=== PATIENT | female | born 1950 | race Caucasian/White ===

== ENCOUNTER → 2017-07-16 | Day surgery (SDC) | payer MEDICARE ==
[~2017-07-16] MED LIST: ACETAMINOPHEN 1000 MG/100 ML 100 ML IV ONE; BUPIVACAINE/EPINEPHRINE 0.25% 50 ML VIAL ONE; HYDROCORTISONE SOD SUCCINATE 100 MG VIAL ONE; KETOROLAC TROMETHAMINE 30 MG/ML (IVP) VIAL IV PUSH ONE; LACTATED RINGER'S 1000 ML INJ 1,000 ML ONE; LEVA500T20 PO; MIDAZOLAM HCL 2 MG/2 ML VIAL ONE; MORPHINE SULFATE 4 MG/ML INJ ONE; ONDANSETRON HCL 4 MG/2 ML VIAL IV PUSH ONE; PERC5TAB12 PO; PRED5TAB PO; PROPOFOL 200 MG/20 ML AMP IV ONE; SODIUM CHLORIDE 0.9% INJ 100 ML IV ONE; VANCOMYCIN HCL 1000 MG VIAL ONE
--- NOTE | 2017-07-16 10:00 | MP ---
cc: KIMBERLY MCGINNIS M.D., YONG-HSIUNG MD DATE OF SURGERY 07/16/2017 PROCEDURE Laparoscopic cholecystectomy. PREOPERATIVE DIAGNOSIS Symptomatic cholelithiasis with biliary colic. POSTOPERATIVE DIAGNOSIS Symptomatic cholelithiasis with biliary colic. ANESTHESIA General endotracheal. SURGEON MD Juan CONSTRUCTION EQUIPMENT MECHANIC HELPER AISSATOU Hamilton ESTIMATED BLOOD LOSS Less than 30 mL. FLUIDS 900 mL crystalloid. COMPLICATIONS None. DRAINS None. SPECIMEN Gallbladder and stones to pathology. PROCEDURE IN DETAIL The CASTING OPERATOR HELPER was present for the entirety of the procedure. Her presence was required for retraction, visualization and resection of important structures. The patient was taken to the operating room and placed on the operating table in the supine position. The abdomen was prepped and draped in the usual fashion. Time-out was taken confirming the correct patient, site and procedure to be performed. The skin and subcutaneous tissue was infiltrated with local anesthetic and an incision made in the umbilicus and carried through the fascia sharply. The peritoneal cavity was directly visualized. Three 5-mm trocars were placed with the first to the right of the falciform ligament and second and third in the right subcostal region. All entered the abdominal cavity under direct vision uneventfully. The fundus of the gallbladder was grasped and retracted up and over the dome of liver. The cystic duct-infundibular junction and cystic artery were both circumferentially dissected. The cystic artery was doubly clipped proximally, singly clipped on the gallbladder side and divided. The cystic duct was doubly clipped distally, singly clipped on the gallbladder side and divided. Cholangiogram was not obtained, as the anatomy was very clearly identified with the common duct visualized as well. Liver function tests had normalized and the common bile duct was not dilated. The gallbladder was then dissected off the liver bed with electrodissection. The gallbladder was entered at one point and all bile was aspirated and rinsed. The gallbladder was then placed into an EndoCatch device and removed via the umbilicus. The specimen was passed off the table. The camera was once again placed into the umbilical port and the upper abdomen visualized. The liver bed, cystic artery stump and cystic duct stump were all seen to be clean and dry. All irrigation was aspirated from the abdominal cavity. Insufflation was discontinued and the upper abdominal ports removed. During desufflation all three upper abdominal trocar sites were observed and seen to be clean and dry. The laparoscope and umbilical port were removed. The fascia was closed in the umbilicus with 0 Vicryl suture in both a simple interrupted and [id number] fashion. The remaining local anesthetic was injected into each of the trocar sites. The skin was closed at each of the trocar sites with 4-0 Vicryl in an interrupted buried fashion. All trocar sites were dressed with Steri-Strips. The patient was extubated and taken back to the recovery room in stable condition. Sponge and needle counts were reported to be correct. The patient tolerated the procedure well. MD ZELDA Hickman/SSB /9:21 AM /9:48 AM
== END | disposition home or self-care (01) ==
LOC: ESDC 06:56
PROVIDERS: ATTEND Surgery Trauma Surgery
DX: K80.12 Calculus of gallbladder with acute and chronic cholecystitis without obstruction (principal)
CPT/HCPCS: 00790; 47562; 88304; J0131; J1720; J1885; J2250; J2270; J2405; J3010; J3370; J7120

== ENCOUNTER 2017-07-19 11:28 | Observation (INO) | payer MEDICARE ==
[~2017-07-19] VITALS: Ht 154.9 cm; Wt 87.0 kg
[2017-07-19 11:30] VITALS: BP 157/90; PULSE 108; RESP 24; TEMP 98.5; O2SAT 96
[2017-07-19] MEDS ORDERED: LACTATED RINGER'S 1000 ML INJ 1,000 ML IV ONE (12:00)
[2017-07-19] MEDS ORDERED: ePHEDrine/NS 25 MG/5 ML SYR IV ONE (12:00)
[2017-07-19] MEDS ORDERED: KETOROLAC TROMETHAMINE 30 MG/ML (IVP) VIAL IV PUSH ONE (12:00)
[2017-07-19] MEDS ORDERED: PROPOFOL 200 MG/20 ML AMP IV ONE (12:00)
[2017-07-19] MEDS ORDERED: PRED5TAB PO (12:40)
[2017-07-19] MEDS ORDERED: PERC5TAB12 PO (12:40)
[2017-07-19 12:41] VITALS: BP 148/98; PULSE 94; RESP 17; O2SAT 97
[2017-07-19] MEDS ORDERED: SODIUM CHLOR 0.9% 1000 ML INJ 1,000 ML IV ONE (13:00)
[2017-07-19] MEDS ORDERED: ONDANSETRON HCL 4 MG/2 ML VIAL IV ONE (13:00)
[2017-07-19 13:34] LABS: BASOPHIL # 0.1 TH/MM3 (0-0.2); BASOPHIL % 0.7 % (0.0-2.0); EOSINOPHIL # 0.2 TH/MM3 (0-0.4); EOSINOPHIL % 1.5 % (0.0-4.0); HEMATOCRIT 42.7 % (35.0-46.0); HEMO FLAGS DIFF FINAL; LYMPH % 17.4 % (9.0-44.0); LYMPHOCYTE # 1.7 TH/MM3 (1.0-4.8); MEAN CELL VOLUME 87.3 FL (80.0-100.0); MEAN CORPUSCULAR HEMOGLOBIN 28.3 PG (27.0-34.0); MEAN CORPUSCULAR HGB CONC 32.4 % (32.0-36.0); MONO % 9.9 % (0.0-8.0); NEUT % 70.5 % (16.0-70.0); PLATELET COUNT 234 TH/MM3 (150-450); RED BLOOD COUNT 4.89 MIL/MM3 (4.00-5.30); RED CELL DISTRIBUTION WIDTH 14.7 % (11.6-17.2); WHITE BLOOD COUNT 9.9 TH/MM3 (4.0-11.0)
[2017-07-19 13:53] LABS: ANION GAP 11 MEQ/L (5-15); AST (GOT) 35 U/L (15-37); BICARBONATE 22.9 MEQ/L (21.0-32.0); BLOOD UREA NITROGEN 20 MG/DL (7-18); CHLORIDE 103 MEQ/L (98-107); GLOMERULAR FILTRATION RATE 74 ML/MIN (>89); POTASSIUM 3.6 MEQ/L (3.5-5.1); SODIUM (NA) 137 MEQ/L (136-145)
[2017-07-19 13:54] LABS: ALT (GPT) 164 U/L (10-53)
[2017-07-19 13:56] LABS: ALKALINE PHOSPHATASE 131 U/L (45-117); TOTAL BILIRUBIN ADULT 1.8 MG/DL (0.2-1.0)
--- NOTE | 2017-07-19 13:56 | PD ---
HPI Chief Complaint: Abdominal Pain Time Seen by Provider: 12:34 Travel History International Travel<30 days: No Contact w/Intl Traveler<30days: No Traveled to known affect area: No History of Present Illness HPI 67-year-old woman who presents to the emergency department complaining of abdominal pain. She had a laparoscopic cholecystectomy on July [address] Camarillo in for symptomatic cholelithiasis and biliary colic. Surgically what well according to the notes. She was doing fine for the next day or so, that night she started getting nausea and vomiting. She with the [facility]. The ears and nausea medicine and check some labs. She currently felt better when home. Yesterday she slept all day had one episode of vomiting. Today she started having abdominal pain and vomiting. She is a bowel movement today after surgery which is normal, several of them, no recent bowel movements. No urinary symptoms. She had some chills. She otherwise has been feeling generally well and healthy. History Past Medical History Narrative Medical Recent cholecystectomy, no other abdominal surgeries Influenza Vaccination: No Social History Alcohol Use: No Tobacco Use: No Allergies-Medications (Allergen,Severity, Reaction): Coded Allergies: amoxicillin (Verified Allergy, Unknown, 07/19/17) Reported Meds & Prescriptions Reported Meds & Active Scripts Active Reported Percocet (Oxycodone-Acetaminophen) 5-325 mg Tab 1 Tab PO BID PRN Prednisone 5 Mg Tab 7.5 Mg PO DAILY Review of Systems Except as stated in HPI: all other systems reviewed are Neg Physical Exam Narrative GENERAL: Well-appearing 67-year-old woman, no acute distress. SKIN: Focused skin assessment warm/dry. HEAD: Atraumatic. Normocephalic. EYES: Pupils equal and round. No scleral icterus. No injection or drainage. ENT: No nasal bleeding or discharge. Mucous membranes pink and moist. NECK: Trachea midline. No JVD. CARDIOVASCULAR: Regular rate and rhythm. No murmur appreciated. RESPIRATORY: No accessory muscle use. Clear to auscultation. Breath sounds equal bilaterally. GASTROINTESTINAL: Abdomen soft. Well-healing laparoscopic cholecystectomy incisions. Minimal right upper quadrant tenderness. No rebound or guarding. MUSCULOSKELETAL: No obvious deformities. No clubbing. No cyanosis. No edema. NEUROLOGICAL: Awake and alert. No obvious cranial nerve deficits. Motor grossly within normal limits. Normal speech. PSYCHIATRIC: Appropriate mood and affect; insight and judgment normal. Data Data Last Documented VS Vital Signs Date Time Temp Pulse Resp B/P (MAP) Pulse Ox O2 Delivery O2 Flow Rate FiO2 07/19/17 12:41 94 17 148/98 (115) 97 Room Air 07/19/17 11:30 98.5 Orders Orders Complete Blood Count With Diff (07/19/17 12:54) Comprehensive Metabolic Panel (07/19/17 12:54) Iv Access Insert/Monitor (07/19/17 12:54) Us Abdomen Gallbladder (07/19/17 ) Sodium Chlor 0.9% 1000 Ml Inj (Ns 1000 M (07/19/17 13:00) Ondansetron Inj (Zofran Inj) (07/19/17 13:00) Admit Order (Ed Use Only) (07/19/17 ) Code Status (07/19/17 14:37) Vital Signs (Adult) KARELY.Q4H (07/19/17 14:37) Activity Oob Ad Lucila (07/19/17 14:37) Discontinue Iv (07/19/17 14:37) Diet Regular Basic (07/19/17 Dinner) Lactated Ringer's 1000 Ml Inj (Lr 1000 M (07/19/17 15:00) Sodium Chloride 0.9% Flush (Ns Flush) (07/19/17 14:45) Sodium Chloride 0.9% Flush (Ns Flush) (07/19/17 21:00) Acetamin-Hydrocod 325-5 Mg (Ollie 5-325 (07/19/17 14:45) Morphine Inj (Morphine Inj) (07/19/17 14:45) Complete Blood Count With Diff (07/20/17 06:00) Acetamin-Hydrocod 325-5 Mg (Ollie 5-325 (07/19/17 14:45) Ondansetron Inj (Zofran Inj) (07/19/17 14:45) Post-Op Orders (For Pharmacy) (Post-Op O (07/19/17 14:45) Do Not Adm Any Anticoagulants (07/19/17 14:45) Naloxone Inj (Narcan Inj) (07/19/17 14:45) Hepatic Functional Panel (07/20/17 06:00) Levofloxacin (Levaquin) (07/20/17 09:00) Place In Observation (07/19/17 14:37) Mri Mrcp W/O Contrast (07/19/17 ) Labs Laboratory Tests Test 07/19/17 13:00 White Blood Count 9.9 TH/MM3 Red Blood Count 4.89 MIL/MM3 Hemoglobin 13.8 GM/DL Hematocrit 42.7 % Mean Corpuscular Volume 87.3 FL Mean Corpuscular Hemoglobin 28.3 PG Mean Corpuscular Hemoglobin Concent 32.4 % Red Cell Distribution Width 14.7 % Platelet Count 234 TH/MM3 Mean Platelet Volume 7.5 FL Neutrophils (%) (Auto) 70.5 % Lymphocytes (%) (Auto) 17.4 % Monocytes (%) (Auto) 9.9 % Eosinophils (%) (Auto) 1.5 % Basophils (%) (Auto) 0.7 % Neutrophils # (Auto) 7.0 TH/MM3 Lymphocytes # (Auto) 1.7 TH/MM3 Monocytes # (Auto) 1.0 TH/MM3 Eosinophils # (Auto) 0.2 TH/MM3 Basophils # (Auto) 0.1 TH/MM3 CBC Comment DIFF FINAL Differential Comment Blood Urea Nitrogen 20 MG/DL Creatinine 0.78 MG/DL Random Glucose 88 MG/DL Total Protein 6.6 GM/DL Albumin 2.9 GM/DL Calcium Level 8.2 MG/DL Alkaline Phosphatase 131 U/L Aspartate Amino Transf (AST/SGOT) 35 U/L Alanine Aminotransferase (ALT/SGPT) 164 U/L Total Bilirubin 1.8 MG/DL Sodium Level 137 MEQ/L Potassium Level 3.6 MEQ/L Chloride Level 103 MEQ/L Carbon Dioxide Level 22.9 MEQ/L Anion Gap 11 MEQ/L Estimat Glomerular Filtration Rate 74 ML/MIN [facility] Medical Decision Making Medical Screen Exam Complete: Yes Emergency Medical Condition: Yes Interpretation(s) LABS: CBC unremarkable. CMP remarkable for mildly elevated ALT, total bili 1.8 Gallbladder ultrasound: Differential Diagnosis Biloma, ileus, infection, other Narrative Course Generally well-appearing 67-year-old woman, postop day 3 following cholecystectomy. Overall looks pretty well. Saw some vomiting and pain. Spoke with Dr. morgan, baton teacher for Dr. Martinez. He evaluated the patient in the ED as well. We'll check ultrasound to rule out biloma. We'll check labs. Otherwise supportive treatment and outpatient follow-up. FINAL: Show increased bilirubin. I spoke with Dr. morgan, we'll get MRCP and admission for further evaluation for possible choledocholithiasis. Alonzo Sawyer MD Jul 19, 2017 13:56
--- NOTE | 2017-07-19 13:57 | RADRPT ---
EXAM DATE/TIME: 07/19/2017 13:19 [facility] COMPARISON: No previous studies available for comparison. INDICATIONS : Right upper quadrant pain. MEDICAL HISTORY : Arthritis. Vomiting. Right upper quadrant pain. SURGICAL HISTORY : Cholecystectomy. ENCOUNTER: Initial ACUITY: 3 days PAIN SCORE: 8/10 LOCATION: Right upper quadrant MEASUREMENTS: LIVER: 13.7 cm length COMMON DUCT: 5 mm RIGHT KIDNEY: 9.0 x 4.8 x 4.4 cm FINDINGS: LIVER: Normal echotexture without focal lesion or ductal dilatation. COMMON DUCT: No intraluminal mass or stone visualized. GALLBLADDER: Previous cholecystectomy. Mild scarring noted in the gallbladder fossa. No fluid collections. PANCREAS: The visualized portions are within normal limits. RIGHT KIDNEY: No evidence of hydronephrosis, stone, or mass. CONCLUSION: No acute abnormality demonstrated. Previous cholecystectomy. Charles Piña MD on July 19, 2017 at 13:54 Board Certified Radiologist. This report was verified electronically.
[2017-07-19] MEDS ORDERED: ACETAMINOPHEN/HYDROcodone 325 MG/5 MG TAB PO PRN ×2 (14:45)
[2017-07-19] MEDS ORDERED: Post-op Orders (for Pharmacy) MISC XX ONE (14:45)
[2017-07-19] MEDS ORDERED: SODIUM CHLORIDE 0.9% FLUSH 5 ML FLUSH IVF PRN (14:45)
[2017-07-19] MEDS ORDERED: NALOXONE HCL 0.4 MG/ML AMP IV PRN (14:45)
[2017-07-19] MEDS ORDERED: ONDANSETRON HCL 4 MG/2 ML VIAL IV PRN (14:45)
[2017-07-19] MEDS ORDERED: LACTATED RINGER'S 1000 ML INJ 1,000 ML IV SCH (15:00)
--- NOTE | 2017-07-19 15:05 | MH ---
cc: AJ MCKINNEY M.D. DATE OF ADMISSION: 07/19/2017 CHIEF COMPLAINT: Nausea, vomiting, status post laparoscopic cholecystectomy HISTORY OF PRESENT ILLNESS: Ms. Kohler is a pleasant 67-year-old female patient of Dr. Dmitriy Martinez'charis who underwent a laparoscopic cholecystectomy on Friday. She reports that on she developed nausea and vomiting. She went to the emergency room at [facility] and where she was seen and evaluated and discharged home with some antiemetics. The patient states that she continued to have intermittent nausea and vomiting and last night became concerned. She called this morning and I spoke to her by phone and I encouraged her to come to the emergency department for evaluation. The patient reported to the emergency department at [facility] where she was seen by myself as well as by Dr. Yang Sawyer. She was worked up and found to have a slight elevation of her liver function tests. I notified Dr. Martinez and he requested that she be admitted for observation and further workup. The patient reports no fever or chills. She reports some mild right upper quadrant pain but no significant pain. She has had no other symptoms other than nausea and vomiting. PAST MEDICAL HISTORY: None PAST SURGICAL HISTORY: Laparoscopic cholecystectomy three days ago. MEDICATIONS: She is currently on: 1. Percocet. 2. Prednisone. ALLERGIES: AMOXICILLIN. SOCIAL HISTORY: She denies cigarette or alcohol use. She lives up in [place]. REVIEW OF SYSTEMS: Her review of systems is unremarkable. FAMILY HISTORY: Her family history is unremarkable. PHYSICAL EXAMINATION: VITAL SIGNS: Temperature 98, pulse is 100, blood pressure is 150/90, respiratory rate 20. GENERAL: In general, this is a pleasant middle-aged female accompanied by her son sitting in the emergency department in no significant distress. HEAD, EYES, EARS, NOSE, THROAT: The sclerae are white. The oropharynx is clear and moist. NECK: The neck is supple. No masses. LUNGS: Clear to auscultation bilaterally. HEART: S1 and S2 and no murmurs. ABDOMEN: Soft. Minimally tender in the right upper quadrant. No rebound or guarding. The surgical wound is all healing well. No evidence of hematoma or infection. EXTREMITIES: Free range of motion x4. NEUROLOGIC: Alert and oriented times three. LABS: White blood cell count 9.9 with 70% neutrophils, hemoglobin 13, platelet count is 234,000. Electrolytes within normal limits. Bilirubin 1.8, ALT is 164, alkaline phosphatase is 131, AST is 35. IMAGING STUDIES: Ultrasound the abdomen: Right upper quadrant unremarkable. Normal sized common bile duct. No free fluid. No ductal dilatation or obvious stones. IMPRESSION: Nausea and vomiting with elevated LFTs status post laparoscopic cholecystectomy. 1. The patient will be admitted for observation. 2. She will undergo an MRCP to further evaluate the common bile duct for possible retained stone. 3. Will check an amylase and lipase to make sure she has not had pancreatitis. 4. Will put her on some prophylactic antibiotics pending her further workup. This was all discussed with the patient and her son at the bedside and they are agreeable. Dr. Martinez was notified and is aware. MD EMI Dixon/CHAR /2:43 PM /2:51 PM
--- NOTE | 2017-07-19 15:58 | RADRPT ---
EXAM DATE/TIME: 07/19/2017 15:06 [facility] COMPARISON: US ABDOMEN - GALLBLADDER, July 19, 2017, 13:19. INDICATIONS : Abdominal pain. Cholecystectomy 07/16/17. MEDICAL HISTORY : Arthritis. SURGICAL HISTORY : Cholecystectomy. ENCOUNTER: Initial ACUITY: 1 day PAIN SCORE: 4/10 LOCATION: Right lower quadrant TECHNIQUE: Multiplanar, multisequence magnetic resonance imaging of the abdomen was performed. High-resolution 3D dataset was utilized to reconstruct maximum-intensity projection (MIP) images. FINDINGS: The patient is status post recent cholecystectomy with a small amount of free fluid identified within the right lateral tissues and within the imaged abdomen is likely postsurgical. There is mild dilati on of the small bowel with herniation of small bowel through an anterior midline defect. The imaged l arge bowel is normal in caliber. INTRAHEPATIC BILE DUCTS: Within normal limits. No significant anatomical variant is present. EXTRAHEPATIC BILE DUCTS: The common bile duct measures 3 mm. No stone or filling defect is identified. GALLBLADDER: Surgically absent. LIVER: Normal size and signal intensity. No concerning liver lesion is identified on this non-contrast exam. PANCREAS: The main pancreatic duct is normal in size. There is no significant anatomical variant. Signal inte nsity is within normal limits. No mass is visualized on this non-contrast exam. OTHER: The remaining visualized structures demonstrate no acute abnormality on this non-contrast exam. CONCLUSION: The patient is status post recent cholecystectomy with herniation of small bowel loops through a ante rior midline defect. The prominence of the small bowel loops may be secondary to ileus versus early s mall bowel obstruction, favor ileus. The free fluid identified within the right lateral soft tissues and within the mesentery is likely postsurgical.. Lidia Conte MD on July 19, 2017 at 15:50 Board Certified Radiologist. This report was verified electronically.
[2017-07-19 15:59] LABS: AMYLASE 33 U/L (25-115)
[2017-07-19] MEDS: MORPHINE SULFATE 4 MG/ML INJ IV PUSH PRN ×2 (17:05→20:47)
--- NOTE | 2017-07-19 19:51 | HHI.PR ---
Subjective Subjective Notes I reviewed MRCP, patient has incarcerated incisional umbilical hernia causing PSBO Objective Vitals/I&O Vital Signs Date Time Temp Pulse Resp B/P (MAP) Pulse Ox O2 Delivery O2 Flow Rate FiO2 07/19/17 17:09 07/19/17 12:41 94 17 97 Room Air 07/19/17 11:30 98.5 Labs Laboratory Tests Test 07/19/17 13:00 White Blood Count 9.9 Red Blood Count 4.89 Hemoglobin 13.8 Hematocrit 42.7 Mean Corpuscular Volume 87.3 Mean Corpuscular Hemoglobin 28.3 Mean Corpuscular Hemoglobin Concent 32.4 Red Cell Distribution Width 14.7 Platelet Count 234 Mean Platelet Volume 7.5 Neutrophils (%) (Auto) 70.5 Lymphocytes (%) (Auto) 17.4 Monocytes (%) (Auto) 9.9 Eosinophils (%) (Auto) 1.5 Basophils (%) (Auto) 0.7 Neutrophils # (Auto) 7.0 Lymphocytes # (Auto) 1.7 Monocytes # (Auto) 1.0 Eosinophils # (Auto) 0.2 Basophils # (Auto) 0.1 CBC Comment DIFF FINAL Differential Comment Blood Urea Nitrogen 20 Creatinine 0.78 Random Glucose 88 Total Protein 6.6 Albumin 2.9 Calcium Level 8.2 Alkaline Phosphatase 131 Aspartate Amino Transf (AST/SGOT) 35 Alanine Aminotransferase (ALT/SGPT) 164 Total Bilirubin 1.8 Sodium Level 137 Potassium Level 3.6 Chloride Level 103 Carbon Dioxide Level 22.9 Anion Gap 11 Estimat Glomerular Filtration Rate 74 Amylase Level 33 Lipase 85 Narrative Exam abdomen is soft, umbilical area has some fullness but I do not feel obvious bowel or defect secondary to her obesity. A/P Assessment and Plan incacerated umbilical incisional hernia s/p lap jerald with psbo dr bang aware, will come in to reduce and repair, OR notified and will add on anil i called son Omi and he is aware and agrees with plan pt aware and agrees also, will sign consents.. Ivan Figueroa MD Jul 19, 2017 19:51
[2017-07-19 20:00] VITALS: BP 158/82; PULSE 84; RESP 20; TEMP 97.6; O2SAT 97
[2017-07-19] MEDS: SODIUM CHLORIDE 0.9% FLUSH 5 ML FLUSH IVF SCH (20:49)
[2017-07-19] MEDS ORDERED: SUGAMMADEX SODIUM 200 MG/2 ML VIAL IV PUSH ONE ×2 (22:21)
[2017-07-19] MEDS ORDERED: CIPROFLOXACIN 400 MG PREMIX 200 ML ONE (22:56)
[2017-07-19] MEDS ORDERED: metroNIDAZOLE 500 MG INJ 100 ML IV ONE (22:57)
[2017-07-19] MEDS ORDERED: ONDANSETRON HCL 4 MG/2 ML VIAL ONE (23:05)
[2017-07-19] MEDS ORDERED: DICLOFENAC SODIUM 37.5 MG/ML VIAL IV PUSH ONE (23:05)
[2017-07-19] MEDS ORDERED: ACETAMINOPHEN 1000 MG/100 ML 100 ML IV ONE (23:05)
--- NOTE | 2017-07-19 23:36 | HHI.PR ---
cc: Dmitriy Martinez MD Immediate Post Op Note Procedure Date: Jul 19, 2017 Pre Op Diagnosis: Incarcerated umbilical hernia with small bowel obstruction Post Op Diagnosis: Same Surgeon: Dmitriy Martinez Electro Optics Engineer(s): Cathy Piedra CFA Procedure: Reduction and primary repair of umbilical hernia Findings: Incarcerated loop of viable small intestine in umbilical hernia Complications: None Specimen(s) removed: None Estimated blood loss: <30 ml Anesthesia: General Drains: None IVF (1100 ml) Patient to: PACU Patient Condition: Good Date/Time of Procedure: SEE SURGICAL CARE RECORD Dmitriy Martinez MD Jul 19, 2017 23:36
[2017-07-19] MEDS ORDERED: DO NOT ADM ANY ANTICOAGULANT DRUGS PRN (23:38)
[2017-07-20] VITALS: BP 159/89; PULSE 91; RESP 20; TEMP 95.7; O2SAT 93
[2017-07-20] MEDS ORDERED: MIDAZOLAM HCL 2 MG/2 ML VIAL ONE (00:07)
[2017-07-20] MEDS ORDERED: fentaNYL CITRATE 250 MCG/5 ML AMP ONE (00:08)
[2017-07-20] MEDS ORDERED: BUPIVACAINE HCL PF 0.5% 30 ML VIAL INFIL ONE (00:25)
[2017-07-20] MEDS: DEXTROSE 5%-LACTATED RING INJ 1,000 ML IV SCH ×5 (01:47→23:45)
[2017-07-20 04:00] VITALS: BP 168/95; PULSE 88; RESP 20; TEMP 97.2; O2SAT 98
[2017-07-20 06:09] LABS: AUTOMATED NEUTROPHIL # 8.4 TH/MM3 (1.8-7.7); BASOPHIL % 0.1 % (0.0-2.0); HEMATOCRIT 38.2 % (35.0-46.0); HEMO FLAGS DIFF FINAL; LYMPH % 6.9 % (9.0-44.0); LYMPHOCYTE # 0.7 TH/MM3 (1.0-4.8); MEAN CORPUSCULAR HGB CONC 33.3 % (32.0-36.0); MONO % 5.4 % (0.0-8.0); NEUT % 87.6 % (16.0-70.0); PLATELET COUNT 193 TH/MM3 (150-450); RED BLOOD COUNT 4.38 MIL/MM3 (4.00-5.30); RED CELL DISTRIBUTION WIDTH 14.4 % (11.6-17.2); WHITE BLOOD COUNT 9.6 TH/MM3 (4.0-11.0)
[2017-07-20 07:20] LABS: INDIRECT BILIRUBIN 0.8 MG/DL (0.0-0.8); TOTAL BILIRUBIN ADULT 1.2 MG/DL (0.2-1.0)
[2017-07-20 08:00] VITALS: BP 139/76; PULSE 84; RESP 18; TEMP 96.2; O2SAT 97
[2017-07-20] MEDS: LEVOFLOXACIN 500 MG TAB PO SCH (08:27)
[2017-07-20] MEDS: SODIUM CHLORIDE 0.9% FLUSH 5 ML FLUSH IVF SCH ×2 (08:28→21:00)
[2017-07-20 12:00] VITALS: BP 147/81; PULSE 77; RESP 16; TEMP 97.1; O2SAT 99
[2017-07-20 16:00] VITALS: BP 144/80; PULSE 80; RESP 16; TEMP 98.2; O2SAT 95
--- NOTE | 2017-07-20 17:56 | HHI.PR ---
Subjective Subjective Notes feels much better Objective Vitals/I&O Vital Signs Date Time Temp Pulse Resp B/P (MAP) Pulse Ox O2 Delivery O2 Flow Rate FiO2 07/20/17 16:00 98.2 80 16 144/80 (101) 95 07/20/17 00:31 Nasal Cannula 3 Labs Laboratory Tests Test 07/20/17 05:15 White Blood Count 9.6 Red Blood Count 4.38 Hemoglobin 12.7 Hematocrit 38.2 Mean Corpuscular Volume 87.0 Mean Corpuscular Hemoglobin 29.0 Mean Corpuscular Hemoglobin Concent 33.3 Red Cell Distribution Width 14.4 Platelet Count 193 Mean Platelet Volume 7.7 Neutrophils (%) (Auto) 87.6 Lymphocytes (%) (Auto) 6.9 Monocytes (%) (Auto) 5.4 Eosinophils (%) (Auto) 0.0 Basophils (%) (Auto) 0.1 Neutrophils # (Auto) 8.4 Lymphocytes # (Auto) 0.7 Monocytes # (Auto) 0.5 Eosinophils # (Auto) 0.0 Basophils # (Auto) 0.0 CBC Comment DIFF FINAL Differential Comment Total Bilirubin 1.2 Direct Bilirubin 0.4 Indirect Bilirubin 0.8 Aspartate Amino Transf (AST/SGOT) 23 Alanine Aminotransferase (ALT/SGPT) 122 Alkaline Phosphatase 112 Total Protein 6.1 Albumin 2.5 Abdomen: Non-distended, Post-op tenderness A/P Assessment and Plan 67yo female with post-site hernia, s/p repair, doing well. FRANCESCO NG clears pain ok Thomas Natarajan MD Jul 20, 2017 17:56
[2017-07-20 20:00] VITALS: BP 144/89; PULSE 96; RESP 20; TEMP 98.1; O2SAT 96
[2017-07-21] VITALS: BP 146/67; PULSE 83; RESP 18; TEMP 97; O2SAT 94
[2017-07-21] MEDS: DEXTROSE 5%-LACTATED RING INJ 1,000 ML IV SCH (07:45)
[2017-07-21 08:00] VITALS: BP 159/81; PULSE 80; RESP 18; TEMP 98.3; O2SAT 95
[2017-07-21] MEDS: LEVOFLOXACIN 500 MG TAB PO SCH (10:48)
[2017-07-21 12:00] VITALS: BP 159/81; PULSE 82; RESP 18; TEMP 97.8; O2SAT 95
[2017-07-21 16:00] VITALS: BP 162/85; PULSE 78; RESP 18; TEMP 98.7; O2SAT 97
[2017-07-21] MEDS ORDERED: LEVA500T20 PO (18:52)
--- NOTE | 2017-07-21 18:55 | HHI.PR ---
Subjective Subjective Notes Feeling well, no pain Had a bowel movement Objective Vitals/I&O Vital Signs Date Time Temp Pulse Resp B/P (MAP) Pulse Ox O2 Delivery O2 Flow Rate FiO2 07/21/17 16:00 98.7 78 18 162/85 (110) 97 07/20/17 00:31 Nasal Cannula 3 Lungs: Clear Abdomen: Non-distended Narrative Exam Steristrips intact; no erythema at umbilicus A/P Assessment and Plan POD #2/5 Repair umbilical hernia/Lap cholecystectomy Doing extremely well Advance diet Heplock IVF Home tomorrow Dmitriy Martinez MD Jul 21, 2017 18:55
[2017-07-21 20:00] VITALS: BP 143/69; PULSE 81; RESP 22; TEMP 98.6; O2SAT 97
[2017-07-21] MEDS: SODIUM CHLORIDE 0.9% FLUSH 5 ML FLUSH IVF SCH (20:46)
[2017-07-22] VITALS: BP 152/75; PULSE 91; RESP 20; TEMP 97.9; O2SAT 95
[2017-07-22 08:00] VITALS: BP 140/82; PULSE 85; RESP 18; TEMP 98.8; O2SAT 96
[2017-07-22] MEDS: LEVOFLOXACIN 500 MG TAB PO SCH (08:58)
[2017-07-22] MEDS: SODIUM CHLORIDE 0.9% FLUSH 5 ML FLUSH IVF SCH (08:59)
--- NOTE | 2017-07-22 09:15 | MP ---
cc: KIMBERLY MARTINEZ M.D. DATE OF SURGERY 07/19/2017 PROCEDURE Reduction and repair of incarcerated umbilical hernia with primary repair. PREOPERATIVE DIAGNOSIS Incarcerated umbilical hernia with bowel obstruction. POSTOPERATIVE DIAGNOSIS Incarcerated umbilical hernia with bowel obstruction. ANESTHESIA General endotracheal SURGEON Kimberly Martinez MD ESTIMATED BLOOD LOSS Less than 30 mL FLUIDS 1100 mL crystalloid COMPLICATIONS None DRAINS None SPECIMEN None PROCEDURE IN DETAIL The patient was taken to the operating room and placed on the operating table in the supine position. After an adequate level of general endotracheal anesthesia was achieved, an orogastric tube was placed and the abdomen prepped and draped. Time-out was taken confirming the correct patient, site, and procedure to be performed. IV antibiotics were given prior to incision and at this point the previous skin sutures were removed. A loop of small bowel was seen to be incarcerated within the umbilicus. This was viable. The bowel was returned to the abdominal cavity after removing the remaining Vicryl sutures. The wound edges were freshened up and the fascia, which was viable and robust, was closed primarily with interrupted #1 Prolene sutures in a longitudinal fashion. When this was completed, 30 mL of 0.5% Marcaine plain was injected into the fascia and subcutaneous tissue. The umbilical skin was then closed with 4-0 Vicryl suture in an interrupted buried fashion. The wound was dressed with Steri-Strips and the patient extubated and taken back to the recovery room in stable condition after converting the orogastric tube into a nasogastric tube prior to extubation. Sponge, needle and instrument counts were reported be correct. The patient tolerated the procedure well. MD ZELDA Hickman/[place] /11:29 PM /9:08 AM
[2017-07-22 12:00] VITALS: BP 148/83; PULSE 80; RESP 20; TEMP 98.4; O2SAT 96
--- NOTE | 2017-08-12 16:20 | HHI.DS ---
Discharge Summary Admission Date Jul 19, 2017 at 14:42 Discharge Date: Jul 22, 2017 Admitting Diagnosis Abd Pain, r/o Biliary Obstruction Brief History s/p lap jerald; uncomplicated; back with incarcerated umbilical hernia PE at Discharge Alert and awake Cardio; RRR Resp: CTAB Abd: Steristrips intact; no erythema at umbilicus Hospital Course This is a 67 year old female s/plap cholecystectomy (uncomplicated) back with umbilical hernia. S/p repair by Dr. Martinez. Patient was able to tolerate a regular diet. The patient's pain was controlled using oral pain medications. The patient will follow up in the office. Pt Condition on Discharge: Good Discharge Disposition: Discharge Home Discharge Instructions DIET: Follow Instructions for: As Tolerated, No Restrictions Activities you can perform: See Additionl Instruction Jerica Duvall Aug 12, 2017 16:20
== END 2017-07-22 17:05 | disposition home or self-care (01) ==
LOC: NEPC 11:28 → INTOOBSV 14:42 → NEDA 14:42 → N07B 17:18
PROVIDERS: ADMIT Surgery Trauma Surgery; ATTEND Surgery Trauma Surgery
DX: K42.0 Umbilical hernia with obstruction, without gangrene (principal); Z90.49 Acquired absence of other specified parts of digestive tract
CPT/HCPCS: 00840; 49587; 74181; 76377; 76705; 80053; 80076; 82150; 83690; 85025; 96361; 96374; 96375; 96376; 99285; G0378; J0131; J0744; J1885; J2250; J2270; J2405; J3010; J7030; J7120; J7121; J1130